=== PATIENT | female | born 1965 | race Caucasian/White ===

== ENCOUNTER 2020-12-19 01:24 | Observation (INO) | payer MEDICARE ==
[2020-12-19] MEDS ORDERED: Lidocaine 1% PF 5 ML VIAL ONE ×2 (03:03→14:46)
[2020-12-19] MEDS ORDERED: Bacitracin 1 PK ONE (03:03)
[2020-12-19] MEDS ORDERED: Boostrix 0.5 ML (Tdap) VIAL ONE (03:38)
[2020-12-19] MEDS ORDERED: Bupivacaine 0.5% 10 ML VIAL ONE (04:26)
[2020-12-19] MEDS ORDERED: Ondansetron PF 4 MG/2 ML Vial IVP PRN (05:45)
[2020-12-19] MEDS ORDERED: Ketorolac Tromethamine 30 MG/ML VIAL IVP PRN (05:46)
[2020-12-19 06:34] VITALS: BMI 36.8
[2020-12-19 07:40] LABS: SARS-CoV-2 NAA Rapid Test Not Detected (NotDetected)
[2020-12-19] MEDS ORDERED: CEFAZOLIN 2 GM in Premix Bag 1 BAG IVPB SCH (09:00)
[2020-12-19 09:32] LABS: Hemoglobin 14.2 g/dL (12.0-16.0); Mean Corpuscular HGB CONC 32.5 g/dL (32.0-36.0); Mean Corpuscular Hemoglobin 29.2 pg (27.0-31.0); Mean Corpuscular Volume 89.7 fL (78.0-98.0); Mean Platelet Volume 8.3 fL (7.4-10.4); Platelet Count 245 thou/uL (130-400); Red Blood Cell (RBC) Count 4.88 mill/uL (4.20-5.40)
[2020-12-19] MEDS ORDERED: Morphine 2 MG/ML VIAL SLOW IVP PRN (09:41)
[2020-12-19 09:52] LABS: Anion Gap 14 mmol/L (10-20); BUN (Urea Nitrogen) 14 mg/dL (9.8-20.1); Calc. Creatinine Clearance 127 mL/min (70-130); Calcium 9.3 mg/dL (7.8-10.44); Carbon Dioxide 28 mmol/L (22-29); Chloride 100 mmol/L (98-107); Glucose 85 mg/dL (70-105); Potassium 3.1 mmol/L (3.5-5.1); Sodium 139 mmol/L (136-145)
[2020-12-19] MEDS: Fentanyl 100 MCG/2 ML VIAL SLOW IVP PRN ×2 (11:52→18:57)
[2020-12-19] MEDS ORDERED: HYDROcodone/Acetaminophen 5/325 mg Tablet PO PRN (14:24)
[2020-12-19] MEDS ORDERED: Bupivacaine 0.25% HCL 30 ML VIAL ONE (14:31)
[2020-12-19] MEDS ORDERED: Fentanyl 100 MCG/2 ML VIAL ONE ×4 (14:42→16:56)
[2020-12-19] MEDS ORDERED: Midazolam HCl 2 mg/2 ml Vial ONE (14:42)
[2020-12-19] MEDS ORDERED: PROPOFOL 200 MG/20 ML VIAL ONE (14:46)
[2020-12-19] MEDS ORDERED: Ondansetron PF 4 MG/2 ML Vial ONE ×2 (14:46→16:07)
[2020-12-19] MEDS ORDERED: Promethazine HCl 25 MG/ML VIAL IM PRN (15:36)
[2020-12-19] MEDS ORDERED: Promethazine HCl 25 MG/ML VIAL SLOW IVP PRN (15:36)
[2020-12-19] MEDS ORDERED: Ondansetron HCl/PF 4 MG/2 ML Vial IVP PRN (15:36)
[2020-12-19] MEDS ORDERED: Promethazine HCl 25 MG/ML VIAL ONE ×2 (16:23→16:40)
[2020-12-19 19:31] VITALS: BP 126/82; TEMP 98.6
== END 2020-12-19 20:00 | disposition home or self-care (01) ==
LOC: ERS 01:24 → SURG A 03:57
PROVIDERS: ADMIT Orthopaedic Surgery; ATTEND Orthopaedic Surgery
PROC: 0S9Q0ZZ Drainage of Left Toe Phalangeal Joint, Open Approach (ICD-10-PCS; principal; 2020-12-19)
PROC: 0LQW0ZZ Repair Left Foot Tendon, Open Approach (ICD-10-PCS; 2020-12-19)
DX: S96.122A Laceration of muscle and tendon of long extensor muscle of toe at ankle and foot level, left foot, initial encounter (principal); S91.115A Laceration without foreign body of left lesser toe(s) without damage to nail, initial encounter; S91.112A Laceration without foreign body of left great toe without damage to nail, initial encounter; S93.115A Dislocation of interphalangeal joint of left lesser toe(s), initial encounter; M79.7 Fibromyalgia; E11.42 Type 2 diabetes mellitus with diabetic polyneuropathy; E03.9 Hypothyroidism, unspecified; K21.9 Gastro-esophageal reflux disease without esophagitis; K22.70 Barrett's esophagus without dysplasia; R53.82 Chronic fatigue, unspecified; G89.29 Other chronic pain; M54.9 Dorsalgia, unspecified; G43.909 Migraine, unspecified, not intractable, without status migrainosus; I10 Essential (primary) hypertension; Z79.84 Long term (current) use of oral hypoglycemic drugs; Z79.899 Other long term (current) drug therapy; Z88.6 Allergy status to analgesic agent; Z98.84 Bariatric surgery status; Z20.822 Contact with and (suspected) exposure to COVID-19; W26.8XXA Contact with other sharp object(s), not elsewhere classified, initial encounter; Y93.D2 Activity, sewing
CPT/HCPCS: 28024; 28208; 73660; 80048; 85027; 90471; 90715; 96365; 96375; 96376; 99284; G0378 ×2; U0002; U0005; 36415; J0690; J2250; J2405; J2550; J2704; J3010; J3490; S0020